=== PATIENT | female | born 2000 | race Caucasian/White ===

== ENCOUNTER 2018-02-25 14:45 | Emergency (ER) | payer BC ==
[~2018-02-25] VITALS: Ht 157.5 cm; Wt 70.5 kg
[2018-02-25 14:49] VITALS: TEMP 37; Ht 157.5 cm; Wt 70.5 kg
[2018-02-25] MEDS ORDERED: KETOROLAC TROMETHAMINE 30 MG/ML VIAL IV STA (16:06)
[2018-02-25 16:38] LABS: BASO % 0.4 %; BASO ABS # 0.02 K/uL (0-0.2); EOS % 2.2 %; EOS ABS # 0.11 K/uL (0-0.5); HEMATOCRIT 40.5 % (37-47); HEMOGLOBIN 14.2 g/dL (12.0-16.0); IG# 0.01 K/uL (0.00-0.02); LYMPH % 27.2 %; LYMPH ABS # 1.34 K/uL (1.2-3.4); MEAN CELL VOLUME 85.6 fL (80-100); MEAN CORPUSCULAR HGB CONC 35.1 g/dl (32-36); MEAN PLATELET VOLUME 9.1 fL (7.4-10.4); MONO % 10.1 %; NEUT % 59.9 %; NEUT ABS # 2.95 K/uL (1.4-6.5); PLATELET COUNT 236 K/uL (130-400); RED CELL DISTRIBUTION WIDTH CV 12.8 % (11.5-14.5); RED CELL DISTRIBUTION WIDTH SD 40.5 fL (36.4-46.3); WHITE BLOOD COUNT 4.93 K/uL (4.8-10.8)
[2018-02-25] MEDS ORDERED: VNTHFA/IN INH (16:38)
[2018-02-25] MEDS ORDERED: BCPILLS PO (16:38)
[2018-02-25] MEDS ORDERED: FLVHFA110 INH (16:38)
[2018-02-25 17:02] LABS: CALCIUM 9.6 mg/dl (8.5-10.1); CREATININE 0.88 mg/dl (0.60-1.20); POTASSIUM 4.1 mmol/L (3.5-5.1)
--- NOTE | 2018-02-25 17:21 | DIAGNOSTIC IMAGING REPORT ---
PELVIC COMPLETE NON OB HISTORY: 17 years-old Female EVAL PELVIC PAIN acute generalized pelvic pain COMPARISON: None available TECHNIQUE: Multiple real-time sonographic images of the deep pelvic structures were obtained transabdominally and transvaginally assessing grayscale appearance, color and spectral flow FINDINGS: TRANSABDOMINAL: Anteflexed uterus. TRANSVAGINAL: Anteflexed uterus measures 6.9 x 3.1 x 3.6 cm and is unremarkable without myometrial mass lesion identified. Endometrium is homogeneous, 5 mm in thickness. The right ovary measures 2.9 x 1.8 x 2.2 cm and is unremarkable with arterial inflow documented. No adnexal mass lesions. Left ovary measures 2.5 x 1.6 x 2.1 cm and is also within normal limits with arterial inflow documented. No left adnexal mass lesions. Minimal free pelvic fluid is likely physiologic. IMPRESSION: 1. Unremarkable sonographic appearance of the uterus and endometrium. 2. Bilateral ovaries are unremarkable without evidence of ovarian torsion or adnexal mass. 3. Minimal free pelvic fluid is likely physiologic. The above report was generated using voice recognition software. It may contain grammatical, syntax or spelling errors. Electronically signed by: Carlyle Mora M.D. 02/25/2018 5:20 PM Dictated Date/Time: 02/25/2018 5:18 PM
--- NOTE | 2018-02-25 18:34 | EMERGENCY ROOM VISIT NOTE ---
History First contact with patient: 15:40 Chief Complaint: PELVIC PAIN Stated Complaint: LOWER AB PAIN History of Present Illness Patient is a 17-year-old female who presents the emergency department as referred by gynecology for evaluation of pelvic pain. Patient reports that she has had increasingly painful menstruation over the last couple of months, and in the last couple of weeks has had some bilateral lower pelvic pain on and off initially, the pain has become more constant in the last 5 days since her period ended. Last menstrual period was 02/15 through 02/19. She notes bilateral lower pelvic pain that is dull and aching in nature with occasional sharp pain on the right. She was referred to the emergency department after speaking with gynecology for a possible ovarian cyst. Patient reports she has been feeling nauseous with the pain. She is taking ibuprofen without relief. She denies any dysuria, frequency, urgency or hematuria. Bowel movements have been normal for her, she does admit she has been slightly constipated. She has had what she calls "normal" vaginal discharge for her. 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 She was treated with a topical acid treatment, then cryotherapy. Patient was last sexually active yesterday, she denies dyspareunia. She rates her discomfort a 5/10. Review of Systems Review of systems as per HPI. All other systems reviewed were negative. 10 systems reviewed. 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 See Problem List. Social History Smoking Status: Current Some Day Smoker Alcohol Use: occasionally Housing Status: lives with roommate Occupation Status: [employer] student Current/Historical Medications Scheduled Control Pills ( Control Pills), 1 TAB PO DAILY Scheduled PRN Albuterol Hfa (Ventolin Hfa), 2 PUFFS INH DIRECTED PRN for Shortness of Breath Fluticasone Propionate (Flovent Hfa), 2 PUFFS INH HS PRN for Shortness of Breath Physical Exam Vital Signs Date Time Temp Pulse Resp B/P (MAP) Pulse Ox O2 Delivery O2 Flow Rate FiO2 02/25/18 18:56 63 12 106/64 99 02/25/18 17:44 93 16 138/82 99 Room Air 02/25/18 15:52 96 14 143/81 100 Room Air 02/25/18 14:49 37.0 74 16 121/75 100 Room Air Physical Exam CONSTITUTIONAL: Patient is a well-appearing 17-year-old female who is awake and alert and in no acute distress. EYES: Pupils equal, round, reactive to light and accommodation. EOMs intact without nystagmus. Sclera are anicteric. ENT: Tympanic membranes intact, with normal landmarks. External canals are clear. Oral and nasopharynx are clear. Mucous membranes are moist, no lesions , tongue and gums appear normal. NECK: Supple without lymphadenopathy. No thyromegaly. No meningeal signs. Full active range of motion without discomfort. CARDIOVASCULAR: Regular rate and rhythm, with normal S1 and S2, no murmur or gallop or rub is heard. No carotid bruits auscultated. No JVD. Peripheral pulses easily palpable. RESPIRATORY: Breath sounds equal and clear to auscultation without wheezes, rales, or rhonchi heard. Full and equal chest expansion without accessory muscle use or retractions. ABDOMEN: Bowel sounds are present. Abdomen is soft, nondistended, nontender to percussion throughout. Slight tenderness to palpation across the entire lower abdomen, primarily in the right suprapubic region. There is no guarding, rebound or rigidity. There is no pain in the right lower quadrant over McBurney 's point. INTEGUMENTARY: No lesions or rash, normal skin turgor. LYMPH: No lymphadenopathy. PELVIC EXAM: Nurse was present as a curing room supervisor. Genitalia are normal Vagina is clean Cervix is closed, without lesions. No CMT. The uterus is small, nontender The adnexa no masses, nontender Medical Decision & Procedures ER Provider Diagnostic Interpretation: PELVIC COMPLETE NON OB HISTORY: 17 years-old Female EVAL PELVIC PAIN acute generalized pelvic pain COMPARISON: None available TECHNIQUE: Multiple real-time sonographic images of the deep pelvic structures were obtained transabdominally and transvaginally assessing grayscale appearance, color and spectral flow FINDINGS: TRANSABDOMINAL: Anteflexed uterus. TRANSVAGINAL: Anteflexed uterus measures 6.9 x 3.1 x 3.6 cm and is unremarkable without myometrial mass lesion identified. Endometrium is homogeneous, 5 mm in thickness. The right ovary measures 2.9 x 1.8 x 2.2 cm and is unremarkable with arterial inflow documented. No adnexal mass lesions. Left ovary measures 2.5 x 1.6 x 2.1 cm and is also within normal limits with arterial inflow documented. No left adnexal mass lesions. Minimal free pelvic fluid is likely physiologic. IMPRESSION: 1. Unremarkable sonographic appearance of the uterus and endometrium. 2. Bilateral ovaries are unremarkable without evidence of ovarian torsion or adnexal mass. 3. Minimal free pelvic fluid is likely physiologic. Laboratory Results 02/25/18 16:00 Red Blood Count 4.73, Mean Corpuscular Volume 85.6, Mean Corpuscular Hemoglobin 30.0, Mean Corpuscular Hemoglobin Concent 35.1, Mean Platelet Volume 9.1, Neutrophils (%) (Auto) 59.9, Lymphocytes (%) (Auto) 27.2, Monocytes (%) (Auto) 10.1, Eosinophils (%) (Auto) 2.2, Basophils (%) (Auto) 0.4, Neutrophils # (Auto ) 2.95, Lymphocytes # (Auto) 1.34, Monocytes # (Auto) 0.50, Eosinophils # (Auto ) 0.11, Basophils # (Auto) 0.02 02/25/18 16:00 Test 02/25/18 16:00 02/25/18 18:25 White Blood Count 4.93 K/uL (4.8-10.8) Red Blood Count 4.73 M/uL (4.2-5.4) Hemoglobin 14.2 g/dL (12.0-16.0) Hematocrit 40.5 % (37-47) Mean Corpuscular Volume 85.6 fL (80-100) Mean Corpuscular Hemoglobin 30.0 pg (25-34) Mean Corpuscular Hemoglobin Concent 35.1 g/dl (32-36) Platelet Count 236 K/uL (130-400) Mean Platelet Volume 9.1 fL (7.4-10.4) Neutrophils (%) (Auto) 59.9 % Lymphocytes (%) (Auto) 27.2 % Monocytes (%) (Auto) 10.1 % Eosinophils (%) (Auto) 2.2 % Basophils (%) (Auto) 0.4 % Neutrophils # (Auto) 2.95 K/uL (1.4-6.5) Lymphocytes # (Auto) 1.34 K/uL (1.2-3.4) Monocytes # (Auto) 0.50 K/uL (0.11-0.59) Eosinophils # (Auto) 0.11 K/uL (0-0.5) Basophils # (Auto) 0.02 K/uL (0-0.2) RDW Standard Deviation 40.5 fL (36.4-46.3) RDW Coefficient of Variation 12.8 % (11.5-14.5) Immature Granulocyte % (Auto) 0.2 % Immature Granulocyte # (Auto) 0.01 K/uL (0.00-0.02) Urine Color YELLOW Urine Appearance CLEAR (CLEAR) Urine pH 5.5 (4.5-7.5) Urine Specific Chromo 1.012 (1.000-1.030) Urine Protein NEG (NEG) Urine Glucose (UA) NEG (NEG) Urine Ketones NEG (NEG) Urine Occult Blood NEG (NEG) Urine Nitrite NEG (NEG) Urine Bilirubin NEG (NEG) Urine Urobilinogen NEG (NEG) Urine Leukocyte Esterase NEG (NEG) Urine Test NEG (NEG) Anion Gap 8.0 mmol/L (3-11) Est Creatinine Clear Calc Drug Dose 94.6 ml/min Estimated GFR () 110.4 Estimated GFR (Non- 95.3 BUN/Creatinine Ratio 8.8 (10-20) Calcium Level 9.6 mg/dl (8.5-10.1) Date/Time Source Procedure Growth Status 02/25/18 18:25 Vaginal Swab Trichomonas Preparation - Final Complete Medications Administered Medications (Trade) Dose Ordered Sig/Dali Route Start Time Stop Time Status Last Admin Dose Admin Ketorolac Tromethamine (Toradol Inj) 30 mg NOW STAT IV 02/25/18 16:06 02/25/18 16:09 DC 02/25/18 16:22 30 MG ED Course The patient was seen and assessed as above. Old records were reviewed. IV lock was initiated and laboratory studies were collected including CBC with differential, BMP and urinalysis. Pelvic ultrasound was ordered. She was medicated with Toradol 30 mg IV. Laboratory studies noted a normal white count. H&H is normal. Electrolytes and renal functions are unremarkable. Urine dip is completely clear, urine test is negative. Pelvic ultrasound is unremarkable, ovaries were within normal limits with no evidence for torsion or mass. When patient returned from ultrasound, pelvic exam was performed and cultures were obtained. Swab for Trichomonas was negative. Vaginal Gram stain did not note any clue cells. Final culture and probe for chlamydia and gonorrhea are pending. The patient was made aware of the results of her laboratory and diagnostic imaging. Differential diagnoses entertained included UTI, cystitis, pyelonephritis, renal colic, PID, cervicitis, ovarian cyst, ovarian torsion, regnancy, ectopic , tubo-ovarian abscess, among others. The patient reported that her pain is improved and rates her discomfort a 2/10 at discharge. She was encouraged to follow-up with gynecology for further care and evaluation of her symptoms if they are not improving. She was discharged home in good condition. Vital signs are stable. Medical Decision See emergency department course. Medication Reconcilliation Current Medication List: was personally reviewed by me Blood Pressure Screening Patient's blood pressure: Normal blood pressure Blood pressure disposition: Did not require urgent referral Impression Primary Impression: Pelvic pain Departure Information Referrals No Doctor, Assigned (PCP) Patient Instructions [facility] Additional Instructions Ibuprofen(Motrin, Advil) may be used for fever or pain. Use 600mg every six hours as needed. Take with food. Avoid using more than 2400mg in a 24 hour period. Do not use 2400mg per day for more than three consecutive days without physician direction. Prolonged inappropriate use can lead to stomach upset or ulcers. This is available over the counter and typically comes in 200mg tablets. (AND/OR) Acetaminophen(Tylenol) may be used for fever or pain. Use 1000mg every eight hours as needed. Avoid using more than 3000mg in a 24 hour period. This is available over the counter. Rest and drink plenty of fluids as tolerated. Slow sips of water or sports drinks are recommended instead of large amounts all at once. Continue current medications. Once your stomach is settled start with a clear liquid diet (jello, soup broth, etc.) and then advance as tolerated. You should avoid full, heavy meals for about 24 hrs from the time your symptoms resolved. Return to the ER immediately for worsening or persistent abdominal pain, vomiting, fevers, chest pains, difficulty breathing, black or bloody stools, worsening of your condition, or as needed. Follow-up with RN [facility] next week for recheck.
[2018-02-25 18:56] VITALS: BP 106/64; PULSE 63; O2SAT 99
== END 2018-02-25 18:57 | disposition home or self-care (01) ==
LOC: C.EDB 14:48 → C.EDC 18:57
DX: R10.2 Pelvic and perineal pain (principal); J45.909 Unspecified asthma, uncomplicated; Z79.3 Long term (current) use of hormonal contraceptives; F17.200 Nicotine dependence, unspecified, uncomplicated